=== PATIENT | male | born 1975 | race Asian ===

== ENCOUNTER 2021-06-22 10:36 | Emergency (ER) | payer BC ==
[~2021-06-22] VITALS: Ht 185.4 cm; Wt 74.8 kg
[2021-06-22 10:40] VITALS: BP_SYST 119
--- NOTE | 2021-06-22 10:40 | NUR ---
Patient to ER bed 5 to gown for evaluation. Side rails up. Report given to VALERIA KENDALL.
--- NOTE | 2021-06-22 10:42 | NUR ---
PT CAME TO ER C/O RIGHT ANKLE PAIN AND SWELLING AFTER TWISTING IT WHILE PLAYING BASKETBALL LAST WED. HE HAS BEEN ICING AND ELEVAING AT HOME, PAIN AND SWELLING CONTINUE. PT IS AMBULATORY WITHOUT ASSIST, AAOX4, V/S STABLE
--- NOTE | 2021-06-22 10:45 | NUR ---
ER DR. MATTHEWS AT THE BEDSIDE EXAMINING PT
--- NOTE | 2021-06-22 11:15 | NUR ---
x-rays completed, pt calm, alert, resp unlabored, skin warm and dry. circulation and sensation intact ble
[2021-06-22] MEDS ORDERED: NAPR-690 PO (11:34)
--- NOTE | 2021-06-22 11:44 | NUR ---
Patient given written and verbal discharge instructions and verbalizes understanding. ER MD discussed with patient the results and treatment provided. Patient in stable condition. ID arm band removed. Rx of naproxyn given. Patient educated on pain management and to follow up with PMD. Pain Scale 2/10 Opportunity for questions provided and answered. Medication side effect fact sheet provided.
== END 2021-06-22 11:44 | disposition home or self-care (01) ==
LOC: SED 10:36
DX: S93.401A Sprain of unspecified ligament of right ankle, initial encounter (principal); Z79.899 Other long term (current) drug therapy; X50.1XXA Overexertion from prolonged static or awkward postures, initial encounter; Y93.67 Activity, basketball; Y92.89 Other specified places as the place of occurrence of the external cause; Y99.8 Other external cause status
CPT/HCPCS: 99283